=== PATIENT | female | born 1970 | race Hispanic/Latino ===

== ENCOUNTER 2016-09-02 11:29 | Inpatient (IN) | payer MEDICARE ==
[2016-09-02] MEDS ORDERED: NARCAN 2 MG/2 ML ONE (11:32)
[2016-09-02] MEDS ORDERED: VASELINE LIP THERAPY TP PRN (11:54)
[2016-09-02] MEDS ORDERED: NACL 0.9% 1000 ML 1,000 ML IV ONE (11:54)
[2016-09-02] MEDS ORDERED: ARTIFICIAL TEARS OPHTH OINT OU PRN (11:54)
[2016-09-02] MEDS ORDERED: NACL 0.9% 500 ML IV SCH (12:00)
[2016-09-02 12:28] LABS: Basophils % (Auto) 0.2 % (0.0-1.8); Hematocrit 33.6 % (30.3-42.9); Mean Corpuscular HGB Conc 33 % (30-34); Mean Corpuscular Hemoglobin 27 pg (28-32); Mean Corpuscular Volume 83 fl (79-97); Platelet Count 263 K/mm3 (140-440); Red Blood Count 4.05 M/mm3 (3.65-5.03); Red Cell Distribution Width 16.9 % (13.2-15.2); White Blood Count 10.2 K/mm3 (4.5-11.0)
[2016-09-02] MEDS ORDERED: ZEMURON IV ONE (12:36)
[2016-09-02 12:37] LABS: INR 1.11 (0.87-1.13); Partial Thromboplastin Time 25.2 Sec. (24.2-36.6)
[2016-09-02] MEDS: ATIVAN 100 MG in NACL 0.9% 50 ML, VIAFLEX EMPTY CONTAINER 0 ML IV SCH ×2 (12:40→14:50)
[2016-09-02 12:48] LABS: Creatine Kinase MB 1.3 ng/mL (0.0-4.0)
[2016-09-02 12:50] LABS: Alanine Aminotransferase 13 units/L (7-56); Albumin 3.8 g/dL (3.9-5); Alkaline Phosphatase 51 units/L (35-129); Anion Gap 19 mmol/L; BUN/Creatinine Ratio 13.33; Bilirubin,Total 0.4 mg/dL (0.1-1.2); Blood Urea Nitrogen 12 mg/dL (7-17); Calcium 8.1 mg/dL (8.4-10.2); Carbon Dioxide 20 mmol/L (22-30); Chloride 104.6 mmol/L (98-107); Creatine Kinase 66 units/L (30-135); Glucose 122 mg/dL (65-100); Potassium 4.2 mmol/L (3.6-5.0); Sodium 139 mmol/L (137-145)
[2016-09-02 12:54] LABS: Bilirubin,Direct < 0.2 mg/dL (0-0.2)
[2016-09-02 13:04] LABS: ISTAT Base Excess -3; ISTAT PCO2 45.1 (35-45); ISTAT PH 7.316 (7.35-7.45); ISTAT PO2 162 (80-105); ISTAT SO2 99; ISTAT TCO2 24
--- NOTE | 2016-09-02 13:04 | XRay Report ---
Single view chest: Compared to 08/11/15. History: ET tube placement. Findings: Recommended. Trachea is midline. Tip of endotracheal tube at the level of juani. No consolidation, pneumothorax or pleural effusion. Impression: Tip of endotracheal tube at level of juani. Should be withdrawn approximately 2 cm.
--- NOTE | 2016-09-02 13:23 | Admit Criteria Form ---
Admission Criteria Documentation: RESPIRATORY FAILURE GRG Clinical Indications for Admission to Inpatient Care (Place 'X' for any and all applicable criteria): Hospital admission is needed for appropriate care of the patient because of acute respiratory failure or insufficiency as indicated by ANY ONE of the following(1)(2)(3)(4)(5)(6)(7)(8): [X ]I. Mechanical ventilation needed (acute invasive or noninvasive) [ ]II. Severe ventilation deficit as indicated by ANY ONE of the following (9) [ ]a) Respiratory acidosis (pH less than 7.32 and partial pressure of carbon dioxide greater than 40 mm Hg (5.3 kPa)) [ ]b) Partial pressure of carbon dioxide greater than 44 mm Hg (5.9 kPa ) (new) [ ]c) Airflow measurements less than 25% of predicted (eg, peak expiratory flow rate less than 100 L/minute) [ ]d) Forced vital capacity less than 15 mL/kg of ideal body weight, or 50% decrease in vital capacity from baseline [ ]III. Noncardiac pulmonary edema not resolving with rapid emergency treatment (8) [ ]IV. Severe respiratory distress as indicated by ANY ONE of the following: [ ]a) Severe tachypnea (respiratory rate greater than 30, greater than 45 for 6-month-old, greater than 60 for ) [ ]b) Severe hypoxemia (partial pressure of oxygen less than 50 mm Hg ( 6.7 kPa) on greater than 50% oxygen or partial pressure of oxygen to FIO2 ratio less than 200) [ ]c) Mental status deterioration from respiratory disease [ ]V. Airway obstruction or inadequate protection [A](10)(11) The original [employer] content created by [employer] has been revised. The portions of the content which have been revised are identified through the use of italic text or in bold, and [employer] has neither reviewed nor approved the modified material. All other unmodified content is copyright [employer]. Please see references footnoted in the original [employer] edition 2016 Admission Criteria Met: Yes
--- NOTE | 2016-09-02 13:49 | Emergency Department Report ---
ED General Adult HPI - General Chief complaint: Overdose Stated complaint: POSS OVERDOSE Time Seen by Provider: 09/02/16 11:51 Source: EMS Mode of arrival: Stretcher Limitations: Altered Mental Status - History of Present Illness Initial comments: Patient was found obtunded with altered mental status. Paramedics initiated Ambu bag assist and transported the patient for further care and evaluation. She was presumed to have taken a narcotic (oxycodone). However it appears that the medication was actually oxybutynin. Various other medications were found in the patient's home. She did not respond to Narcan. In actuality it is unknown as to whether or not she actually took an overdose. There is no family yet available to provide additional historical information. In any case the patient is obtunded and in respiratory insufficiency/failure on arrival. RSI was indicated and performed. - Related Data Previous Rx's Medication Instructions Recorded Last Taken Type Acetaminophen/Codeine [Tylenol #3] 1 tab PO Q6H PRN #20 tab 01/30/15 Unknown Rx Fluticasone [Flonase] 1 spray NS QDAY #1 bottle 01/30/15 Unknown Rx Penicillin Vk [Veetids TAB] 500 mg PO QID #28 tablet 01/30/15 Unknown Rx guaiFENesin [Robitussin] 10 ml PO Q6HR #1 bottle 01/30/15 Unknown Rx Allergies Allergy/AdvReac Type Severity Reaction Status Date / Time sulfamethoxazole AdvReac Vomiting Verified 09/02/16 11:47 [From Bactrim] trimethoprim [From Bactrim] AdvReac Vomiting Verified 09/02/16 11:47 ED Review of Systems ROS: Stated complaint: POSS OVERDOSE Other details as noted in HPI Comment: Unobtainable due to pts medical conditions ED Past Medical Hx - Past Medical History Hx Psychiatric Treatment: Yes (depression, insomnia) Additional medical history: Fibroidmyalgia - Social History Smoking Status: Never Smoker Substance Use Type: None - Medications Home Medications: Home Medications Medication Instructions Recorded Confirmed Last Taken Type Acetaminophen/Codeine [Tylenol #3] 1 tab PO Q6H PRN #20 tab 01/30/15 Unknown Rx Fluticasone [Flonase] 1 spray NS QDAY #1 bottle 01/30/15 Unknown Rx Penicillin Vk [Veetids TAB] 500 mg PO QID #28 tablet 01/30/15 Unknown Rx guaiFENesin [Robitussin] 10 ml PO Q6HR #1 bottle 01/30/15 Unknown Rx ED Physical Exam - General Limitations: Altered Mental Status General appearance: obtunded - Head Head exam: Present: atraumatic, normocephalic - Eye Eye exam: Present: PERRL, scleral icterus - ENT ENT exam: Present: mucous membranes moist - Neck Neck exam: Present: normal inspection. Absent: tenderness, meningismus - Respiratory Respiratory exam: Present: respiratory distress, decreased breath sounds, other (slow respiratory rate and shallow breathing) - Cardiovascular Cardiovascular Exam: Present: regular rate, normal rhythm. Absent: systolic murmur, diastolic murmur, rubs, gallop - GI/Abdominal GI/Abdominal exam: Present: soft, normal bowel sounds. Absent: distended, tenderness, guarding, rebound, rigid - Extremities Exam Extremities exam: Present: normal inspection - Neurological Exam Neurological exam: Present: other (she moves all extremities to sternal rub) - Skin Skin exam: Present: warm, dry, intact, normal color. Absent: rash ED Course Vital Signs 09/02/16 09/02/16 11:40 12:19 Pulse Rate 85 81 Respiratory 16 Rate Blood Pressure 115/75 122/77 O2 Sat by Pulse 100 100 Oximetry - Reevaluation(s) Reevaluation #1: RSI performed. Direct laryngoscopy with endotracheal intubation without difficulty. The patient remained hemodynamically stable. She is admitted by Dr. Drew to the hospitalist service for further care and evaluation. This for her metabolic profile is normal, aspirin and salicylate levels are negative. CT the head is yet pending. 09/02/16 13:50 - Intubation Time Out Performed: No Sedative: Etomidate Paralytic: Succinylcholine Size: 4 ET Tube Size: 8 Tube Secured Depth (cm): 23 Tube Secured Location: teeth Tube Placement Confirmation: visualized tube passing t, equal breath sounds bilat, no breath sounds over epi, confirmation by capnometr Patient Tolerated Procedure: well Intubation Complications: none ED Medical Decision Making - Lab Data Result diagrams: 09/02/16 12:05 09/02/16 12:05 Critical Care Time: Yes Critical care time in (mins) excluding proc time.: 45 Critical care attestation.: If time is entered above; I have spent that time in minutes in the direct care of this critically ill patient, excluding procedure time. ED Disposition Clinical Impression: Altered mental status Qualifiers: Altered mental status type: stupor Qualified Code(s): R40.1 - Stupor Respiratory failure Qualifiers: Chronicity: acute Respiratory failure complication: unspecified whether with hypoxia or hypercapnia Qualified Code(s): J96.00 - Acute respiratory failure, unspecified whether with hypoxia or hypercapnia Overdose Qualifiers: Encounter type: initial encounter Injury intent: accidental or unintentional Qualified Code(s): T50.901A - Poisoning by unspecified drugs, medicaments and biological substances, accidental (unintentional), initial encounter Disposition: OP ADMITTED IP TO THIS HOSP Is pt being admited?: No Does the pt Need Aspirin: Yes Condition: Stable Referrals: PRIMARY CARE, [Primary Care Provider] - 3-5 Days Time of Disposition: 13:53
[2016-09-02] MEDS ORDERED: ASPIRIN PR ONE ×2 (13:54→17:51)
[2016-09-02 14:49] LABS: Albumin/Globulin Ratio 1.3 %; Total Protein 6.8 g/dL (6.3-8.2)
--- NOTE | 2016-09-02 14:58 | History and Physical Report ---
History of Present Illness Chief complaint: Unresponsive History of present illness: 46 YO Female with Depression, Insomnia, Fibromyalgia presents to ED for evaluation. Pt was found down and unresponsive by family. EMS notified. EMS found various medications in the patient's home. Pt treated with narcan but did not respond. Pt seen and evaluated in ED but is unable to protect her airway. Pt unable to provide history. Past History Past Medical History: other (Depression, fibromyalgia) Past Surgical History: No surgical history, Other (reviewed) Social history: , lives with family. denies: smoking, alcohol abuse, prescription drug abuse Family history: hypertension Medications and Allergies Allergies Allergy/AdvReac Type Severity Reaction Status Date / Time sulfamethoxazole AdvReac Vomiting Verified 09/02/16 11:47 [From Bactrim] trimethoprim [From Bactrim] AdvReac Vomiting Verified 09/02/16 11:47 Home Medications Medication Instructions Recorded Confirmed Last Taken Type Acetaminophen/Codeine [Tylenol #3] 1 tab PO Q6H PRN #20 tab 01/30/15 Unknown Rx Fluticasone [Flonase] 1 spray NS QDAY #1 bottle 01/30/15 Unknown Rx Penicillin Vk [Veetids TAB] 500 mg PO QID #28 tablet 01/30/15 Unknown Rx guaiFENesin [Robitussin] 10 ml PO Q6HR #1 bottle 01/30/15 Unknown Rx Active Meds: Active Medications Hydrophilic Ointment (Vaseline Lip Therapy) 1 applic TP Q2HR PRN PRN Reason: Dry Lips Lorazepam 100 mg/ Sodium Chloride/ Miscellaneous Information 100 mls @ 1 mls/ hr IV TITR TRINH; 1 MG/HR PRN Reason: Protocol Last Admin: 09/02/16 12:40 Dose: 1 mls/hr Sodium Chloride (Nacl 0.9% 1000 Ml) 1,000 mls @ 250 mls/hr IV ONCE ONE Stop: 09/02/16 15:53 Multi-Ingred Cream/Lotion/Oil/Oint (Artificial Tears Ophth Oint) 1 applic OU Q4HR PRN PRN Reason: Dry Eye(s) Sodium Chloride (Nacl 0.9% 500 Ml) 1 ml IV DIRECT TRINH Review of Systems ROS unobtainable: due to mental status Exam - Constitutional Vitals: Temp Pulse Resp BP Pulse Ox 101 H 16 160/88 100 09/02/16 14:45 09/02/16 14:56 09/02/16 14:45 09/02/16 14:56 General appearance: Present: mild distress - Neck Neck: Present: supple - Respiratory Respiratory: bilateral: diminished - Cardiovascular Heart Sounds: Present: S1 & S2. Absent: rub, click - Extremities Extremities: pulses symmetrical, No edema Peripheral Pulses: within normal limits - Abdominal General gastrointestinal: Present: soft, non-tender, non-distended, normal bowel sounds Female genitourinary: Present: normal - Integumentary Integumentary: Present: clear, warm, dry - Musculoskeletal Musculoskeletal: generalized weakness - Psychiatric Psychiatric: no intact judgment & insight, no memory intact - Neurologic Neurologic: no CNII-XII intact, no gait normal Results - Labs CBC & Chem 7: 09/02/16 12:05 09/02/16 12:05 Labs: Abnormal lab results 09/02/16 09/02/16 09/02/16 Range/Units 12:05 12:05 12:05 MCH 27 L (28-32) pg RDW 16.9 H (13.2-15.2) % Lymph % (Auto) 8.8 L (13.4-35.0) % Lymph # 0.9 L (1.2-5.4) K/mm3 Seg Neutrophils % 86.6 H (40.0-70.0) % Seg Neutrophils # 8.9 H (1.8-7.7) K/mm3 POC ABG pH (7.35-7.45) POC ABG pCO2 (35-45) POC ABG pO2 (80-105) Carbon Dioxide 20 L (22-30) mmol/L Glucose 122 H (65-100) mg/dL Calcium 8.1 L (8.4-10.2) mg/dL Albumin 3.8 L (3.9-5) g/dL Salicylates < 0.3 L (2.8-20.0) mg/dL 09/02/16 Range/Units 12:50 MCH (28-32) pg RDW (13.2-15.2) % Lymph % (Auto) (13.4-35.0) % Lymph # (1.2-5.4) K/mm3 Seg Neutrophils % (40.0-70.0) % Seg Neutrophils # (1.8-7.7) K/mm3 POC ABG pH 7.316 L (7.35-7.45) POC ABG pCO2 45.1 H (35-45) POC ABG pO2 162 H (80-105) Carbon Dioxide (22-30) mmol/L Glucose (65-100) mg/dL Calcium (8.4-10.2) mg/dL Albumin (3.9-5) g/dL Salicylates (2.8-20.0) mg/dL Assessment and Plan - Patient Problems (1) Acute hypoxemic respiratory failure Current Visit: Yes Status: Acute Plan to address problem: Pulmonary consulted: Admitted to ICU, wean vent as tolerated, SBT in am, pulmonary toilet (2) Encephalopathy acute Current Visit: Yes Status: Acute Plan to address problem: suspected secondary to overdose, IVF, supportive care, am bmp (3) Obesity Current Visit: Yes Status: Acute Qualifiers: Obesity type: O Obesity severity: O Plan to address problem: supportive care, pt counseling when awake,alert (4) Depression Current Visit: Yes Status: Chronic Qualifiers: Depression Type: D Major depression recurrence: M Active/Remission status : A Major depression episode severity: M Psychotic features: P Trimester: T Plan to address problem: continue current therapy, psycho consult when awake (5) Overdose Current Visit: Yes Status: Suspected Qualifiers: Encounter type: initial encounter Injury intent: accidental or unintentional Qualified Code(s): T50.901A - Poisoning by unspecified drugs, medicaments and biological substances, accidental (unintentional), initial encounter Plan to address problem: continue current therapy, supplemental oxygen, nebs, pulmonary toilet, (6) DVT prophylaxis Current Visit: Yes Status: Acute
[2016-09-02] MEDS ORDERED: DULCOLAX PR PRN (15:03)
[2016-09-02] MEDS ORDERED: MILK OF MAGNESIA PO PRN (15:03)
[2016-09-02] MEDS ORDERED: DUONEB 0.5 MG-3 MG/3 ML SOLN IH PRN (15:03)
[2016-09-02] MEDS ORDERED: ALUM-MAG HYDROX-SIMETH 200-200-20MG/5ML PO PRN (15:03)
[2016-09-02 15:07] LABS: Urine Drugs of Abuse Note Disclamer
[2016-09-02 15:59] LABS: Bilirubin,Urine NEG (Negative); Blood,Urine NEG (Negative); Ketones,Urine TR mg/dL (Negative); Leukocyte Esterase,Urine NEG (Negative); Mucus,Urine FEW /HPF; Nitrite,Urine NEG (Negative); RBC,Urine < 1.0 /HPF (0.0-6.0); Urobilinogen,Urine < 2.0 mg/dL (<2.0); WBC,Urine < 1.0 /HPF (0.0-6.0)
--- NOTE | 2016-09-02 16:46 | Cat Scan Report ---
CRANIAL CT SCAN: Overdose and mentation changes. Serial contiguous axial images were obtained through the cranium. Intravenous contrast material was not administered. The ventricles are normal in size and appearance. There is no mass effect or midline shift. No areas of abnormally increased or decreased attenuation are seen. No mass lesion is seen. The mastoid air cells and visualized portions of the sinuses are normal. IMPRESSION: Cranial CT scan within normal limits.
[2016-09-02] MEDS ORDERED: LOVENOX SUB-Q ONE (17:51)
[2016-09-02] MEDS: LOVENOX SUB-Q SCH (18:19)
[2016-09-03] MEDS ORDERED: fentaNYL DRIP Premix 2,000 MCG/100 ML BAG IV SCH (03:00)
[2016-09-03] MEDS: ROBITUSSIN PO SCH ×2 (03:25→12:00)
[2016-09-03 04:48] LABS: ISTAT Base Excess -5; ISTAT HCO3 21.1; ISTAT PH 7.341 (7.35-7.45); ISTAT PO2 125 (80-105); ISTAT SO2 99; ISTAT TCO2 22
[2016-09-03] MEDS: ATIVAN 100 MG in NACL 0.9% 50 ML, VIAFLEX EMPTY CONTAINER 0 ML IV SCH (05:05)
--- NOTE | 2016-09-03 09:35 | XRay Report ---
Single view chest: Compared to 09/02/16. History: Followup of respiratory failure. Findings: Borderline cardiomegaly. Tip of endotracheal tube at level of juani. No consolidation, pneumothorax or pleural effusion. Impression: Tip of endotracheal tube at the level of juani. Should be withdrawn approximately 2 cm. No acute lung changes.
[2016-09-03] MEDS: FLONASE NS SCH (10:00)
[2016-09-03] MEDS: LOVENOX SUB-Q SCH (10:25)
[2016-09-03] MEDS ORDERED: SODIUM BICARBONATE FEEDTUBE PRN (10:27)
[2016-09-03] MEDS ORDERED: SIMPLE SYRUP FEEDTUBE PRN ×2 (10:27)
[2016-09-03] MEDS ORDERED: PANCREAZE DR 10,500 UNIT FEEDTUBE PRN (10:27)
--- NOTE | 2016-09-03 12:15 | Consultation ---
History of Present Illness Consult date: 09/03/16 Requesting physician: FAUSTO FUENTES Reason for consult: other (Encephalopathy, inability to protect airway) History of present illness: 46 female, found down at home. Concern for overdose and was intubated in ED for airway protection Past History Past Medical History: other (Depression, fibromyalgia) Past Surgical History: No surgical history, Other (reviewed) Social history: , lives with family. denies: smoking, alcohol abuse, prescription drug abuse Family history: hypertension Medications and Allergies Allergies Allergy/AdvReac Type Severity Reaction Status Date / Time sulfamethoxazole AdvReac Vomiting Verified 09/02/16 11:47 [From Bactrim] trimethoprim [From Bactrim] AdvReac Vomiting Verified 09/02/16 11:47 Home Medications Medication Instructions Recorded Confirmed Last Taken Type Amitriptyline [Elavil] 50 mg PO QHS 09/02/16 09/02/16 Unknown History Bupropion HCl [Wellbutrin XL] 300 mg PO DAILY 09/02/16 09/02/16 Unknown History Buspirone HCl [busPIRone] 15 mg PO BID 09/02/16 09/02/16 Unknown History Gabapentin [Neurontin] 600 mg PO TID 09/02/16 09/02/16 Unknown History Lisinopril [Zestril TAB] 10 mg PO DAILY 09/02/16 09/02/16 Unknown History Oxybutynin Chloride [Oxybutynin 10 mg PO DAILY 09/02/16 09/02/16 Unknown History Chloride ER] Sertraline HCl [Zoloft] 50 mg PO DAILY 09/02/16 09/02/16 Unknown History Simvastatin [Zocor TAB] 20 mg PO QHS 09/02/16 09/02/16 Unknown History Zolpidem [Ambien] 10 mg PO QHS 09/02/16 09/02/16 Unknown History Active Meds: Active Medications Acetaminophen/Codeine Phosphate (Tylenol #3) 1 tab PO Q6H PRN PRN Reason: Pain Al Hydrox/Mg Hydrox/Simethicone (Alum-Mag Hydrox-Simeth [id number]/5ml) 30 ml PO Q4H PRN PRN Reason: Indigestion Albuterol/Ipratropium (Duoneb 0.5 Mg-3 Mg/3 Ml Soln) 1 ampul IH Q6HRT PRN PRN Reason: Wheezing Lipase/Protease/Amylase (Pancreaze Dr 10,500 Unit) 1 each FEEDTUBE PRN PRN PRN Reason: For Clogged Feeding Tube Bisacodyl (Dulcolax) 10 mg CO QDAY PRN PRN Reason: constipation unrelieved by MOM Enoxaparin Sodium (Lovenox) 40 mg SUB-Q QDAY@1000 TRINH Last Admin: 09/03/16 10:25 Dose: 40 mg Fluticasone Propionate (Flonase) 50 mcg NS QDAY TRINH Guaifenesin (Robitussin) 100 mg PO Q6HR TRINH Last Admin: 09/03/16 03:25 Dose: Not Given Hydrophilic Ointment (Vaseline Lip Therapy) 1 applic TP Q2HR PRN PRN Reason: Dry Lips Lorazepam 100 mg/ Sodium Chloride/ Miscellaneous Information 100 mls @ 1 mls/ hr IV TITR TRINH; 1 MG/HR PRN Reason: Protocol Last Admin: 09/03/16 05:05 Dose: 5 mg/hr, 5 mls/hr Fentanyl Citrate (Fentanyl Drip Premix) 2,000 mcg in 100 mls @ 4.5 mls/hr IV TITR TRINH; 1 MCG/KG/HR PRN Reason: Protocol Last Admin: 09/03/16 02:32 Dose: 1 mcg/kg/hr, 4.5 mls/hr Magnesium Hydroxide (Milk Of Magnesia) 30 ml PO Q4H PRN PRN Reason: Constipation Multi-Ingred Cream/Lotion/Oil/Oint (Artificial Tears Ophth Oint) 1 applic OU Q4HR PRN PRN Reason: Dry Eye(s) Simple Syrup (Simple Syrup) 15 ml FEEDTUBE PRN PRN PRN Reason: Hypoglycemia Simple Syrup (Simple Syrup) 30 ml FEEDTUBE PRN PRN PRN Reason: Hypoglycemia Sodium Bicarbonate (Sodium Bicarbonate) 325 mg FEEDTUBE PRN PRN PRN Reason: For Clogged Feeding Tube Sodium Chloride (Nacl 0.9% 500 Ml) 1 ml IV DIRECT TRINH Review of Systems ROS unobtainable: due to endotracheal tube Physical Examination Vital signs: Vital Signs Pulse BP Pulse Ox 85 115/75 100 09/02/16 11:40 09/02/16 11:40 09/02/16 11:40 General appearance: no acute distress, lethargic Eyes: non-icteric ENT: oropharynx moist, other (large neck) Neck: supple, other (large neck) Effort: normal Ascultation: Bilateral: clear Percussion: Bilateral: not dull Cardiovascular: regular rate and rhythm Gastrointestinal: normoactive bowel sounds Extremities: no cyanosis Musculoskeletal: no deformities normal mental status Results - Laboratory Findings CBC and BMP: 09/02/16 12:05 09/02/16 12:05 ABG POC ABG pH 7.341 (7.35-7.45) L 09/03/16 04:25 POC ABG pCO2 39.0 (35-45) 09/03/16 04:25 POC ABG pO2 125 (80-105) H 09/03/16 04:25 POC ABG HCO3 21.1 09/03/16 04:25 POC ABG Total CO2 22 09/03/16 04:25 POC ABG O2 Sat 99 09/03/16 04:25 PT/INR, D-dimer PT 14.2 Sec. (12.2-14.9) 09/02/16 12:05 INR 1.11 (0.87-1.13) 09/02/16 12:05 Abnormal lab findings: Abnormal Labs 09/03/16 04:25 POC ABG pH 7.341 L POC ABG pO2 125 H - Diagnostic Findings Chest x-ray: image reviewed (clear, no acute events) Assessment and Plan 46 y/o female with acute respiratory failure secondary to drug overdose. 1. Extubate 2. Agree with Psych eval 3. Likely stable for transfer out later this afternoon once extubated. CCT 31 minutes.
[2016-09-03] MEDS ORDERED: NARCAN 2 MG/2 ML ONE (14:00)
--- NOTE | 2016-09-03 15:54 | Progress Note ---
Assessment and Plan Assessment and plan: 46 yo female with fibromyalgia,depression, anxiety, insomnia, found down at home and intubated in ER for airway protection 1. Acute respiratory failure Intubated due to inability to protect her airway Possible extubation today if mental status improves 2. Acute encephalopathy Infection ruled out, ammonia within normal limits; CT head normal Likely secondary to psychotropic medications overdose Supportive care 3. Overdose Overdose on multiple psychotropic/sedative medications; unclear intend Consult Psychiatry 4. Psychiatric disorders On multiple medications with likely overdose Consult psychiatry 5. Hypertension Resume antihypertensives when able to take by mouth Monitor BP, use IV meds for control if needed 6. Hyperlipidemia Resume statin when able to take by mouth 7. Obesity Mental status back to normal, will need counseling regarding importance of losing weight and lifestyle changes 8. DVT prophylaxis Lovenox cc time 35 min History Interval history: sedation d/c this morning and started to wake up; possible extubation later Hospitalist Physical - Constitutional Vitals: Temp Pulse Resp BP Pulse Ox 99.3 F 105 H 24 127/74 98 09/03/16 08:00 09/03/16 12:10 09/03/16 12:10 09/03/16 12:10 09/03/16 12:10 General appearance: Present: no acute distress, obese - EENT Eyes: Present: PERRL - Neck Neck: Present: supple. Absent: enlarged thyroid, masses or JVD - Respiratory Respiratory effort: normal, other (intubated) Respiratory: bilateral: CTA, negative: rales, rhonchi, wheezing - Cardiovascular Rhythm: regular Heart Sounds: Present: S1 & S2. Absent: systolic murmur - Extremities Extremities: no ischemia, No edema - Abdominal General gastrointestinal: soft, non-tender, non-distended, normal bowel sounds - Psychiatric Psychiatric: other (lethargic) Results - Labs CBC & Chem 7: 09/02/16 12:05 09/02/16 12:05 Labs: Laboratory Last Values WBC 10.2 K/mm3 (4.5-11.0) 09/02/16 12:05 RBC 4.05 M/mm3 (3.65-5.03) 09/02/16 12:05 Hgb 11.0 gm/dl (10.1-14.3) 09/02/16 12:05 Hct 33.6 % (30.3-42.9) 09/02/16 12:05 MCV 83 fl (79-97) 09/02/16 12:05 MCH 27 pg (28-32) L 09/02/16 12:05 MCHC 33 % (30-34) 09/02/16 12:05 RDW 16.9 % (13.2-15.2) H 09/02/16 12:05 Plt Count 263 K/mm3 (140-440) 09/02/16 12:05 Lymph % (Auto) 8.8 % (13.4-35.0) L 09/02/16 12:05 [place] % (Auto) 4.4 % (0.0-7.3) 09/02/16 12:05 Eos % (Auto) 0.0 % (0.0-4.3) 09/02/16 12:05 Baso % (Auto) 0.2 % (0.0-1.8) 09/02/16 12:05 Lymph # 0.9 K/mm3 (1.2-5.4) L 09/02/16 12:05 [place] # 0.4 K/mm3 (0.0-0.8) 09/02/16 12:05 Eos # 0.0 K/mm3 (0.0-0.4) 09/02/16 12:05 Baso # 0.0 K/mm3 (0.0-0.1) 09/02/16 12:05 Seg Neutrophils % 86.6 % (40.0-70.0) H 09/02/16 12:05 Seg Neutrophils # 8.9 K/mm3 (1.8-7.7) H 09/02/16 12:05 PT 14.2 Sec. (12.2-14.9) 09/02/16 12:05 INR 1.11 (0.87-1.13) 09/02/16 12:05 APTT 25.2 Sec. (24.2-36.6) 09/02/16 12:05 POC ABG pH 7.341 (7.35-7.45) L 09/03/16 04:25 POC ABG pCO2 39.0 (35-45) 09/03/16 04:25 POC ABG pO2 125 (80-105) H 09/03/16 04:25 POC ABG HCO3 21.1 09/03/16 04:25 POC ABG Total CO2 22 09/03/16 04:25 POC ABG O2 Sat 99 09/03/16 04:25 POC ABG Base Excess -5 09/03/16 04:25 FiO2 40 % 09/03/16 04:25 Sodium 139 mmol/L (137-145) 09/02/16 12:05 Potassium 4.2 mmol/L (3.6-5.0) 09/02/16 12:05 Chloride 104.6 mmol/L (98-107) 09/02/16 12:05 Carbon Dioxide 20 mmol/L (22-30) L 09/02/16 12:05 Anion Gap 19 mmol/L 09/02/16 12:05 BUN 12 mg/dL (7-17) 09/02/16 12:05 Creatinine 0.9 mg/dL (0.7-1.2) 09/02/16 12:05 Estimated GFR > 60 ml/min 09/02/16 12:05 BUN/Creatinine Ratio 13.33 % 09/02/16 12:05 Glucose 122 mg/dL (65-100) H 09/02/16 12:05 Lactic Acid 1.6 mmol/L (0.7-2.0) 09/02/16 12:05 Calcium 8.1 mg/dL (8.4-10.2) L 09/02/16 12:05 Total Bilirubin 0.4 mg/dL (0.1-1.2) 09/02/16 12:05 Direct Bilirubin < 0.2 mg/dL (0-0.2) 09/02/16 12:05 AST 15 units/L (5-40) 09/02/16 12:05 ALT 13 units/L (7-56) 09/02/16 12:05 Alkaline Phosphatase 51 units/L (35-129) 09/02/16 12:05 Ammonia 37.0 umol/L (25-60) 09/02/16 12:05 Total Creatine Kinase 66 units/L (30-135) 09/02/16 12:05 CK-MB (CK-2) 1.3 ng/mL (0.0-4.0) 09/02/16 12:05 CK-MB (CK-2) Rel Index 1.9 (0-4) 09/02/16 12:05 Troponin T < 0.010 ng/mL (0.00-0.029) 09/02/16 12:05 NT-Pro-B Natriuret Pep 42.87 pg/mL (0-450) 09/02/16 12:05 Total Protein 6.8 g/dL (6.3-8.2) 09/02/16 12:05 Albumin 3.8 g/dL (3.9-5) L 09/02/16 12:05 Albumin/Globulin Ratio 1.3 % 09/02/16 12:05 Urine Color Yellow (Yellow) 09/02/16 14:54 Urine Turbidity Clear (Clear) 09/02/16 14:54 Urine pH 6.0 (5.0-7.0) 09/02/16 14:54 Ur Specific [place] 1.019 (1.003-1.030) 09/02/16 14:54 Urine Protein 30 mg/dl mg/dL (Negative) 09/02/16 14:54 Urine Glucose (UA) 50 mg/dL (Negative) 09/02/16 14:54 Urine Ketones Tr mg/dL (Negative) 09/02/16 14:54 Urine Blood Neg (Negative) 09/02/16 14:54 Urine Nitrite Neg (Negative) 09/02/16 14:54 Urine Bilirubin Neg (Negative) 09/02/16 14:54 Urine Urobilinogen < 2.0 mg/dL (<2.0) 09/02/16 14:54 Ur Leukocyte Esterase Neg (Negative) 09/02/16 14:54 Urine WBC (Auto) < 1.0 /HPF (0.0-6.0) 09/02/16 14:54 Urine RBC (Auto) < 1.0 /HPF (0.0-6.0) 09/02/16 14:54 U Epithel Cells (Auto) 1.0 /HPF (0-13.0) 09/02/16 14:54 Urine Mucus Few /HPF 09/02/16 14:54 Salicylates < 0.3 mg/dL (2.8-20.0) L 09/02/16 12:05 Urine Opiates Screen Presumptive negative 09/02/16 14:54 Urine Methadone Screen Presumptive negative 09/02/16 14:54 Acetaminophen < 15.0 ug/mL (10.0-30.0) 09/02/16 12:05 Ur Barbiturates Screen Presumptive negative 09/02/16 14:54 Ur Phencyclidine Scrn Presumptive negative 09/02/16 14:54 Ur Amphetamines Screen Presumptive negative 09/02/16 14:54 U Benzodiazepines Scrn Presumptive negative 09/02/16 14:54 Urine Cocaine Screen Presumptive negative 09/02/16 14:54 U Marijuana (THC) Screen Presumptive negative 09/02/16 14:54 Drugs of Abuse Note Disclamer 09/02/16 14:54 Plasma/Serum Alcohol < 0.01 gm% (0-0.07) 09/02/16 12:05 - Imaging and Cardiology Chest x-ray: image reviewed CT Scan - head: report reviewed
[2016-09-03] MEDS ORDERED: APRESOLINE IV ONE (16:16)
[2016-09-03] MEDS ORDERED: TYLENOL PO PRN (17:51)
[2016-09-03] MEDS ORDERED: TYLENOL PR ONE (18:16)
[2016-09-03] MEDS ORDERED: ATIVAN IV PRN ×2 (20:33)
[2016-09-04] MEDS: ROBITUSSIN PO SCH ×4 (00:27→11:16)
[2016-09-04] MEDS: ATIVAN IV PRN ×2 (03:47→06:52)
[2016-09-04 09:29] LABS: Creatine Kinase 67 units/L (30-135)
[2016-09-04] MEDS: ZESTRIL PO SCH (09:29)
[2016-09-04] MEDS: LOVENOX SUB-Q SCH (09:29)
[2016-09-04] MEDS: FLONASE NS SCH (09:35)
[2016-09-04 09:50] LABS: Creatine Kinase MB < 1.0 ng/mL (0.0-4.0)
--- NOTE | 2016-09-04 15:17 | Progress Note ---
Assessment and Plan 46 y/o female with acute respiratory failure secondary to drug overdose. 1. Stable for transfer to the floor. 2. Agree with Psych eval Subjective Date of service: 09/04/16 Interval history: No acute events. Successful extubation on yesterday. Mental status is improved. Still somewhat sluggish, otherwise better. Objective Vital Signs - 12hr 09/04/16 09/04/16 09/04/16 03:57 04:00 04:31 Temperature 100.2 F H Pulse Rate 111 H 104 H Respiratory 30 H 27 H Rate Blood Pressure 162/97 162/97 O2 Sat by Pulse 96 97 Oximetry 09/04/16 09/04/16 09/04/16 05:01 05:31 06:00 Temperature Pulse Rate 117 H 116 H Respiratory 40 H 38 H Rate Blood Pressure 129/106 177/101 157/90 O2 Sat by Pulse 92 93 94 Oximetry 09/04/16 09/04/16 09/04/16 06:31 07:01 07:31 Temperature Pulse Rate 113 H 117 H 123 H Respiratory 30 H 15 15 Rate Blood Pressure 157/90 157/88 157/88 O2 Sat by Pulse 91 93 100 Oximetry 09/04/16 09/04/16 09/04/16 08:00 08:31 09:01 Temperature 99.9 F H Pulse Rate 117 H 107 H 112 H Respiratory 29 H 31 H 30 H Rate Blood Pressure 154/91 154/91 147/81 O2 Sat by Pulse 92 94 96 Oximetry 09/04/16 09/04/16 09/04/16 09:29 09:31 10:00 Temperature Pulse Rate 105 H 110 H 108 H Respiratory 13 28 H Rate Blood Pressure 147/81 147/81 157/80 O2 Sat by Pulse 100 99 98 Oximetry 09/04/16 09/04/16 09/04/16 10:31 11:00 11:31 Temperature Pulse Rate 106 H 102 H 102 H Respiratory 28 H 29 H 25 H Rate Blood Pressure 157/80 152/86 152/86 O2 Sat by Pulse 99 99 99 Oximetry 09/04/16 09/04/16 09/04/16 12:00 12:01 12:31 Temperature 99.4 F Pulse Rate 106 H 107 H Respiratory 22 26 H Rate Blood Pressure 142/70 142/70 O2 Sat by Pulse 97 94 Oximetry 09/04/16 09/04/16 09/04/16 13:00 13:31 14:00 Temperature Pulse Rate 105 H 113 H 104 H Respiratory 25 H 19 23 Rate Blood Pressure 132/74 132/74 130/79 O2 Sat by Pulse 98 97 95 Oximetry Constitutional: no acute distress, lethargic Eyes: non-icteric ENT: oropharynx moist, other (large neck) Neck: supple, other (large neck) Effort: normal Ascultation: Bilateral: clear Percussion: Bilateral: not dull Cardiovascular: regular rate and rhythm Gastrointestinal: normoactive bowel sounds Extremities: no cyanosis Neurologic: normal mental status CBC and BMP: 09/02/16 12:05 09/02/16 12:05 ABG, PT/INR, D-dimer: ABG POC ABG pH 7.341 (7.35-7.45) L 09/03/16 04:25 POC ABG pCO2 39.0 (35-45) 09/03/16 04:25 POC ABG pO2 125 (80-105) H 09/03/16 04:25 POC ABG HCO3 21.1 09/03/16 04:25 POC ABG Total CO2 22 09/03/16 04:25 POC ABG O2 Sat 99 09/03/16 04:25 PT/INR, D-dimer PT 14.2 Sec. (12.2-14.9) 09/02/16 12:05 INR 1.11 (0.87-1.13) 09/02/16 12:05 Abnormal lab findings: Abnormal Labs 09/03/16 04:25 POC ABG pH 7.341 L POC ABG pO2 125 H
--- NOTE | 2016-09-04 15:34 | Progress Note ---
Assessment and Plan Assessment and plan: 46 yo female with fibromyalgia, depression, anxiety, insomnia, found down at home and intubated in ER for airway protection 1. Acute respiratory failure Intubated due to inability to protect her airway Successfully extubated next day 09/03 2. Acute encephalopathy Infection ruled out, ammonia within normal limits; CT head normal Likely secondary to psychotropic medications overdose Supportive care Resolved 3. Overdose Overdose on multiple psychotropic/sedative medications; unclear intend Awainting Psychiatry evaluation 4. Psychiatric disorders On multiple medications with likely overdose Consult psychiatry Resume Zoloft 5. Hypertension Lisinopril restarted Monitor BP 6. Hyperlipidemia Statin resumed 7. Obesity Will need counseling regarding importance of losing weight and lifestyle changes 8. DVT prophylaxis Lovenox History Interval history: extubated yesterday; c/o insomnia; depressed, crying; present at bedsite Hospitalist Physical - Constitutional Vitals: Temp Pulse Resp BP Pulse Ox 99.4 F 104 H 23 130/79 95 09/04/16 12:00 09/04/16 14:00 09/04/16 14:00 09/04/16 14:00 09/04/16 14:00 General appearance: Present: no acute distress, obese - EENT Eyes: Present: PERRL, EOM intact. Absent: scleral icterus, conjunctival injection - Neck Neck: Present: supple, normal ROM. Absent: masses or JVD - Respiratory Respiratory effort: normal Respiratory: bilateral: CTA, negative: rales, rhonchi, wheezing - Cardiovascular Rhythm: regular Heart Sounds: Present: S1 & S2. Absent: systolic murmur - Extremities Extremities: no ischemia - Abdominal General gastrointestinal: soft, non-tender, non-distended, normal bowel sounds - Psychiatric Psychiatric: depressed - Neurologic Neurologic: CNII-XII intact, no focal deficits Results - Labs CBC & Chem 7: 09/02/16 12:05 09/02/16 12:05 Labs: Laboratory Last Values WBC 10.2 K/mm3 (4.5-11.0) 09/02/16 12:05 RBC 4.05 M/mm3 (3.65-5.03) 09/02/16 12:05 Hgb 11.0 gm/dl (10.1-14.3) 09/02/16 12:05 Hct 33.6 % (30.3-42.9) 09/02/16 12:05 MCV 83 fl (79-97) 09/02/16 12:05 MCH 27 pg (28-32) L 09/02/16 12:05 MCHC 33 % (30-34) 09/02/16 12:05 RDW 16.9 % (13.2-15.2) H 09/02/16 12:05 Plt Count 263 K/mm3 (140-440) 09/02/16 12:05 Lymph % (Auto) 8.8 % (13.4-35.0) L 09/02/16 12:05 [place] % (Auto) 4.4 % (0.0-7.3) 09/02/16 12:05 Eos % (Auto) 0.0 % (0.0-4.3) 09/02/16 12:05 Baso % (Auto) 0.2 % (0.0-1.8) 09/02/16 12:05 Lymph # 0.9 K/mm3 (1.2-5.4) L 09/02/16 12:05 [place] # 0.4 K/mm3 (0.0-0.8) 09/02/16 12:05 Eos # 0.0 K/mm3 (0.0-0.4) 09/02/16 12:05 Baso # 0.0 K/mm3 (0.0-0.1) 09/02/16 12:05 Seg Neutrophils % 86.6 % (40.0-70.0) H 09/02/16 12:05 Seg Neutrophils # 8.9 K/mm3 (1.8-7.7) H 09/02/16 12:05 PT 14.2 Sec. (12.2-14.9) 09/02/16 12:05 INR 1.11 (0.87-1.13) 09/02/16 12:05 APTT 25.2 Sec. (24.2-36.6) 09/02/16 12:05 POC ABG pH 7.341 (7.35-7.45) L 09/03/16 04:25 POC ABG pCO2 39.0 (35-45) 09/03/16 04:25 POC ABG pO2 125 (80-105) H 09/03/16 04:25 POC ABG HCO3 21.1 09/03/16 04:25 POC ABG Total CO2 22 09/03/16 04:25 POC ABG O2 Sat 99 09/03/16 04:25 POC ABG Base Excess -5 09/03/16 04:25 FiO2 40 % 09/03/16 04:25 Sodium 139 mmol/L (137-145) 09/02/16 12:05 Potassium 4.2 mmol/L (3.6-5.0) 09/02/16 12:05 Chloride 104.6 mmol/L (98-107) 09/02/16 12:05 Carbon Dioxide 20 mmol/L (22-30) L 09/02/16 12:05 Anion Gap 19 mmol/L 09/02/16 12:05 BUN 12 mg/dL (7-17) 09/02/16 12:05 Creatinine 0.9 mg/dL (0.7-1.2) 09/02/16 12:05 Estimated GFR > 60 ml/min 09/02/16 12:05 BUN/Creatinine Ratio 13.33 % 09/02/16 12:05 Glucose 122 mg/dL (65-100) H 09/02/16 12:05 Lactic Acid 1.6 mmol/L (0.7-2.0) 09/02/16 12:05 Calcium 8.1 mg/dL (8.4-10.2) L 09/02/16 12:05 Total Bilirubin 0.4 mg/dL (0.1-1.2) 09/02/16 12:05 Direct Bilirubin < 0.2 mg/dL (0-0.2) 09/02/16 12:05 AST 15 units/L (5-40) 09/02/16 12:05 ALT 13 units/L (7-56) 09/02/16 12:05 Alkaline Phosphatase 51 units/L (35-129) 09/02/16 12:05 Ammonia 37.0 umol/L (25-60) 09/02/16 12:05 Total Creatine Kinase 67 units/L (30-135) 09/04/16 08:53 CK-MB (CK-2) < 1.0 ng/mL (0.0-4.0) 09/04/16 08:53 CK-MB (CK-2) Rel Index 1.4 (0-4) 09/04/16 08:53 Troponin T < 0.010 ng/mL (0.00-0.029) 09/04/16 08:53 NT-Pro-B Natriuret Pep 42.87 pg/mL (0-450) 09/02/16 12:05 Total Protein 6.8 g/dL (6.3-8.2) 09/02/16 12:05 Albumin 3.8 g/dL (3.9-5) L 09/02/16 12:05 Albumin/Globulin Ratio 1.3 % 09/02/16 12:05 Urine Color Yellow (Yellow) 09/02/16 14:54 Urine Turbidity Clear (Clear) 09/02/16 14:54 Urine pH 6.0 (5.0-7.0) 09/02/16 14:54 Ur Specific [place] 1.019 (1.003-1.030) 09/02/16 14:54 Urine Protein 30 mg/dl mg/dL (Negative) 09/02/16 14:54 Urine Glucose (UA) 50 mg/dL (Negative) 09/02/16 14:54 Urine Ketones Tr mg/dL (Negative) 09/02/16 14:54 Urine Blood Neg (Negative) 09/02/16 14:54 Urine Nitrite Neg (Negative) 09/02/16 14:54 Urine Bilirubin Neg (Negative) 09/02/16 14:54 Urine Urobilinogen < 2.0 mg/dL (<2.0) 09/02/16 14:54 Ur Leukocyte Esterase Neg (Negative) 09/02/16 14:54 Urine WBC (Auto) < 1.0 /HPF (0.0-6.0) 09/02/16 14:54 Urine RBC (Auto) < 1.0 /HPF (0.0-6.0) 09/02/16 14:54 U Epithel Cells (Auto) 1.0 /HPF (0-13.0) 09/02/16 14:54 Urine Mucus Few /HPF 09/02/16 14:54 Salicylates < 0.3 mg/dL (2.8-20.0) L 09/02/16 12:05 Urine Opiates Screen Presumptive negative 09/02/16 14:54 Urine Methadone Screen Presumptive negative 09/02/16 14:54 Acetaminophen < 15.0 ug/mL (10.0-30.0) 09/02/16 12:05 Ur Barbiturates Screen Presumptive negative 09/02/16 14:54 Ur Phencyclidine Scrn Presumptive negative 09/02/16 14:54 Ur Amphetamines Screen Presumptive negative 09/02/16 14:54 U Benzodiazepines Scrn Presumptive negative 09/02/16 14:54 Urine Cocaine Screen Presumptive negative 09/02/16 14:54 U Marijuana (THC) Screen Presumptive negative 09/02/16 14:54 Drugs of Abuse Note Disclamer 09/02/16 14:54 Plasma/Serum Alcohol < 0.01 gm% (0-0.07) 09/02/16 12:05
[2016-09-04] MEDS: TYLENOL #3 PO PRN (21:24)
[2016-09-04] MEDS: ZOCOR PO SCH (21:24)
[2016-09-04] MEDS ORDERED: ATIVAN IV ONE (22:11)
[2016-09-04] MEDS: NACL 0.9% 1000 ML 1,000 ML IV SCH (23:59)
[2016-09-05] MEDS: ROBITUSSIN PO SCH ×8 (00:32→23:54)
[2016-09-05] MEDS: NACL 0.9% 1000 ML 1,000 ML IV SCH (07:42)
[2016-09-05] MEDS: ZOLOFT PO SCH (09:53)
[2016-09-05] MEDS: ZESTRIL PO SCH (09:54)
[2016-09-05] MEDS: LOVENOX SUB-Q SCH (09:55)
--- NOTE | 2016-09-05 11:03 | Progress Note ---
Assessment and Plan Assessment and plan: 46 yo woman with history of fibromyalgia, depression, anxiety, insomnia, found down at home and intubated in ER for airway protection 1. Acute respiratory failure Intubated due to inability to protect her airway Successfully extubated next day 09/03 2. Acute encephalopathy Infection ruled out, ammonia within normal limits; CT head normal Likely secondary to psychotropic medications overdose Supportive care Resolved 3. Overdose Overdose on multiple psychotropic/sedative medications; unclear intend Awaiting Psychiatry evaluation 4. Psychiatric disorders On multiple medications with likely overdose Consult psychiatry Resume Zoloft 5. Hypertension Lisinopril restarted Monitor BP 6. Hyperlipidemia Statin resumed 7. Obesity Will need counseling regarding importance of losing weight and lifestyle changes 8. DVT prophylaxis Lovenox Disposition: Psych has yet to see History Interval history: Patient seen and examined. Follow up on ams. She is in restraints. Overnight uneventful. No cp, sob, n/v or severe headaches. Imaging, old records, testing, labs, nursing notes reviewed. Plan discussed with patient. Hospitalist Physical - Physical exam Narrative exam: GEN: WDWN, NAD, AWAKE, ALERT, ORIENTATED 2 missed location CVS: RRR, NORMAL S1S2 LUNGS/CHEST: CTA B, NORMAL CHEST EXPANSION B, GOOD AIR ENTRY B ABD: SOFT NTND, GBS, NO REBOUND OR GUARDING EXT/SKIN: NO SIGNIFICANT EDEMA OR RASH MSK: FROM X 4 EXTREMITIES NEURO: CN 2-12 GROSSLY INTACT, NO new FOCAL DEFICITS PSY: CALM - Constitutional Vitals: Temp Pulse Resp BP Pulse Ox 98.6 F 95 H 18 139/82 94 09/05/16 08:00 09/05/16 08:00 09/05/16 08:00 09/05/16 09:54 09/05/16 10:06 General appearance: Present: no acute distress, obese Results - Labs CBC & Chem 7: 09/02/16 12:05 09/02/16 12:05 Labs: Laboratory Last Values WBC 10.2 K/mm3 (4.5-11.0) 09/02/16 12:05 RBC 4.05 M/mm3 (3.65-5.03) 09/02/16 12:05 Hgb 11.0 gm/dl (10.1-14.3) 09/02/16 12:05 Hct 33.6 % (30.3-42.9) 09/02/16 12:05 MCV 83 fl (79-97) 09/02/16 12:05 MCH 27 pg (28-32) L 09/02/16 12:05 MCHC 33 % (30-34) 09/02/16 12:05 RDW 16.9 % (13.2-15.2) H 09/02/16 12:05 Plt Count 263 K/mm3 (140-440) 09/02/16 12:05 Lymph % (Auto) 8.8 % (13.4-35.0) L 09/02/16 12:05 [place] % (Auto) 4.4 % (0.0-7.3) 09/02/16 12:05 Eos % (Auto) 0.0 % (0.0-4.3) 09/02/16 12:05 Baso % (Auto) 0.2 % (0.0-1.8) 09/02/16 12:05 Lymph # 0.9 K/mm3 (1.2-5.4) L 09/02/16 12:05 [place] # 0.4 K/mm3 (0.0-0.8) 09/02/16 12:05 Eos # 0.0 K/mm3 (0.0-0.4) 09/02/16 12:05 Baso # 0.0 K/mm3 (0.0-0.1) 09/02/16 12:05 Seg Neutrophils % 86.6 % (40.0-70.0) H 09/02/16 12:05 Seg Neutrophils # 8.9 K/mm3 (1.8-7.7) H 09/02/16 12:05 PT 14.2 Sec. (12.2-14.9) 09/02/16 12:05 INR 1.11 (0.87-1.13) 09/02/16 12:05 APTT 25.2 Sec. (24.2-36.6) 09/02/16 12:05 POC ABG pH 7.341 (7.35-7.45) L 09/03/16 04:25 POC ABG pCO2 39.0 (35-45) 09/03/16 04:25 POC ABG pO2 125 (80-105) H 09/03/16 04:25 POC ABG HCO3 21.1 09/03/16 04:25 POC ABG Total CO2 22 09/03/16 04:25 POC ABG O2 Sat 99 09/03/16 04:25 POC ABG Base Excess -5 09/03/16 04:25 FiO2 40 % 09/03/16 04:25 Sodium 139 mmol/L (137-145) 09/02/16 12:05 Potassium 4.2 mmol/L (3.6-5.0) 09/02/16 12:05 Chloride 104.6 mmol/L (98-107) 09/02/16 12:05 Carbon Dioxide 20 mmol/L (22-30) L 09/02/16 12:05 Anion Gap 19 mmol/L 09/02/16 12:05 BUN 12 mg/dL (7-17) 09/02/16 12:05 Creatinine 0.9 mg/dL (0.7-1.2) 09/02/16 12:05 Estimated GFR > 60 ml/min 09/02/16 12:05 BUN/Creatinine Ratio 13.33 % 09/02/16 12:05 Glucose 122 mg/dL (65-100) H 09/02/16 12:05 Lactic Acid 1.6 mmol/L (0.7-2.0) 09/02/16 12:05 Calcium 8.1 mg/dL (8.4-10.2) L 09/02/16 12:05 Total Bilirubin 0.4 mg/dL (0.1-1.2) 09/02/16 12:05 Direct Bilirubin < 0.2 mg/dL (0-0.2) 09/02/16 12:05 AST 15 units/L (5-40) 09/02/16 12:05 ALT 13 units/L (7-56) 09/02/16 12:05 Alkaline Phosphatase 51 units/L (35-129) 09/02/16 12:05 Ammonia 37.0 umol/L (25-60) 09/02/16 12:05 Total Creatine Kinase 67 units/L (30-135) 09/04/16 08:53 CK-MB (CK-2) < 1.0 ng/mL (0.0-4.0) 09/04/16 08:53 CK-MB (CK-2) Rel Index 1.4 (0-4) 09/04/16 08:53 Troponin T < 0.010 ng/mL (0.00-0.029) 09/04/16 08:53 NT-Pro-B Natriuret Pep 42.87 pg/mL (0-450) 09/02/16 12:05 Total Protein 6.8 g/dL (6.3-8.2) 09/02/16 12:05 Albumin 3.8 g/dL (3.9-5) L 09/02/16 12:05 Albumin/Globulin Ratio 1.3 % 09/02/16 12:05 Urine Color Yellow (Yellow) 09/02/16 14:54 Urine Turbidity Clear (Clear) 09/02/16 14:54 Urine pH 6.0 (5.0-7.0) 09/02/16 14:54 Ur Specific [place] 1.019 (1.003-1.030) 09/02/16 14:54 Urine Protein 30 mg/dl mg/dL (Negative) 09/02/16 14:54 Urine Glucose (UA) 50 mg/dL (Negative) 09/02/16 14:54 Urine Ketones Tr mg/dL (Negative) 09/02/16 14:54 Urine Blood Neg (Negative) 09/02/16 14:54 Urine Nitrite Neg (Negative) 09/02/16 14:54 Urine Bilirubin Neg (Negative) 09/02/16 14:54 Urine Urobilinogen < 2.0 mg/dL (<2.0) 09/02/16 14:54 Ur Leukocyte Esterase Neg (Negative) 09/02/16 14:54 Urine WBC (Auto) < 1.0 /HPF (0.0-6.0) 09/02/16 14:54 Urine RBC (Auto) < 1.0 /HPF (0.0-6.0) 09/02/16 14:54 U Epithel Cells (Auto) 1.0 /HPF (0-13.0) 09/02/16 14:54 Urine Mucus Few /HPF 09/02/16 14:54 Salicylates < 0.3 mg/dL (2.8-20.0) L 09/02/16 12:05 Urine Opiates Screen Presumptive negative 09/02/16 14:54 Urine Methadone Screen Presumptive negative 09/02/16 14:54 Acetaminophen < 15.0 ug/mL (10.0-30.0) 09/02/16 12:05 Ur Barbiturates Screen Presumptive negative 09/02/16 14:54 Ur Phencyclidine Scrn Presumptive negative 09/02/16 14:54 Ur Amphetamines Screen Presumptive negative 09/02/16 14:54 U Benzodiazepines Scrn Presumptive negative 09/02/16 14:54 Urine Cocaine Screen Presumptive negative 09/02/16 14:54 U Marijuana (THC) Screen Presumptive negative 09/02/16 14:54 Drugs of Abuse Note Disclamer 09/02/16 14:54 Plasma/Serum Alcohol < 0.01 gm% (0-0.07) 09/02/16 12:05
--- NOTE | 2016-09-05 15:52 | Progress Note ---
Assessment and Plan Imp: 1. Drug overdose 2. Acute respiratory failure, hypoxia and hypercapnea presumed 2/2 #1 3. Obesity, nonmorbid 4. Acute encephalopathy 5. Wheezing Rec: 1. Patient wheezing on exam; no hx of asthma/COPD; will stop IVFs, order incentive spirometry, and need to try to get her OOB/ambulating 2. Consider d/c llamas 3. Psych evaluation pending 4. Will f/u on 09/06/16 if still here Plan of care reviewed w/ patient/son, they understand/agree Subjective Date of service: 09/05/16 Principal diagnosis: Acute respiratory failure Interval history: No events. Awake, alert. Has required 4 point restraints per RN for agitation, but calm now with son at bedside. On RA. Denies SOB, wheezing, cough, sputum, hx of pulmonary problems. Active Medications Acetaminophen (Tylenol) 650 mg PO Q4H PRN PRN Reason: Pain, Mild (1-3) Last Admin: 09/04/16 11:15 Dose: 650 mg Acetaminophen/Codeine Phosphate (Tylenol #3) 1 tab PO Q6H PRN PRN Reason: Pain Last Admin: 09/04/16 21:24 Dose: 1 tab Al Hydrox/Mg Hydrox/Simethicone (Alum-Mag Hydrox-Simeth [id number]/5ml) 30 ml PO Q4H PRN PRN Reason: Indigestion Albuterol/Ipratropium (Duoneb 0.5 Mg-3 Mg/3 Ml Soln) 1 ampul IH Q6HRT PRN PRN Reason: Wheezing Bisacodyl (Dulcolax) 10 mg WI QDAY PRN PRN Reason: constipation unrelieved by MOM Enoxaparin Sodium (Lovenox) 40 mg SUB-Q QDAY@1000 [facility] Last Admin: 09/05/16 09:55 Dose: Not Given Fluticasone Propionate (Flonase) 50 mcg NS QDAY [facility] Last Admin: 09/04/16 09:35 Dose: 50 mcg Guaifenesin (Robitussin) 100 mg PO Q6HR [facility] Last Admin: 09/05/16 13:32 Dose: 100 mg Hydrophilic Ointment (Vaseline Lip Therapy) 1 applic TP Q2HR PRN PRN Reason: Dry Lips Lisinopril (Zestril) 10 mg PO DAILY [facility] Last Admin: 09/05/16 09:54 Dose: 10 mg Magnesium Hydroxide (Milk Of Magnesia) 30 ml PO Q4H PRN PRN Reason: Constipation Multi-Ingred Cream/Lotion/Oil/Oint (Artificial Tears Ophth Oint) 1 applic OU Q4HR PRN PRN Reason: Dry Eye(s) Sertraline HCl (Zoloft) 50 mg PO QDAY [facility] Last Admin: 09/05/16 09:53 Dose: 50 mg Simple Syrup (Simple Syrup) 15 ml FEEDTUBE PRN PRN PRN Reason: Hypoglycemia Simple Syrup (Simple Syrup) 30 ml FEEDTUBE PRN PRN PRN Reason: Hypoglycemia Simvastatin (Zocor) 20 mg PO QHS [facility] Last Admin: 09/04/16 21:24 Dose: 20 mg Sodium Bicarbonate (Sodium Bicarbonate) 325 mg FEEDTUBE PRN PRN PRN Reason: For Clogged Feeding Tube Sodium Chloride (Nacl 0.9% 500 Ml) 1 ml IV DIRECT [facility] Objective Vital Signs - 12hr 09/05/16 09/05/16 09/05/16 04:00 08:00 09:54 Temperature 98.6 F 98.6 F Pulse Rate [ 95 H From Monitor] Pulse Rate [ 88 Left Radial] Respiratory 20 18 Rate Blood Pressure 139/82 139/82 Blood Pressure 118/55 [Left Arm] Blood Pressure [Right Arm] O2 Sat by Pulse 95 Oximetry 09/05/16 09/05/16 10:06 12:30 Temperature 98.3 F Pulse Rate [ 95 H From Monitor] Pulse Rate [ Left Radial] Respiratory 18 Rate Blood Pressure Blood Pressure [Left Arm] Blood Pressure 159/80 [Right Arm] O2 Sat by Pulse 94 95 Oximetry Constitutional: no acute distress, alert Eyes: non-icteric ENT: oropharynx moist, other (large neck) Neck: supple, other (large neck) Effort: normal Ascultation: Bilateral: wheezes Cardiovascular: regular rate and rhythm (no mrg) Gastrointestinal: normoactive bowel sounds, soft, non-tender, non-distended Integumentary: normal Extremities: no cyanosis, no edema, pink and warm Neurologic: normal mental status, non-focal exam, pupils equal and round, CN II- XII normal Psychiatric: mood appropriate, affect normal CBC and BMP: 09/02/16 12:05 09/02/16 12:05 ABG, PT/INR, D-dimer: ABG POC ABG pH 7.341 (7.35-7.45) L 09/03/16 04:25 POC ABG pCO2 39.0 (35-45) 09/03/16 04:25 POC ABG pO2 125 (80-105) H 09/03/16 04:25 POC ABG HCO3 21.1 09/03/16 04:25 POC ABG Total CO2 22 09/03/16 04:25 POC ABG O2 Sat 99 09/03/16 04:25 PT/INR, D-dimer PT 14.2 Sec. (12.2-14.9) 09/02/16 12:05 INR 1.11 (0.87-1.13) 09/02/16 12:05 Abnormal lab findings: Abnormal Labs 09/03/16 04:25 POC ABG pH 7.341 L POC ABG pO2 125 H Chest x-ray: report reviewed, image reviewed
[2016-09-05] MEDS: ATIVAN IV PRN (21:03)
[2016-09-05] MEDS: TYLENOL #3 PO PRN (21:04)
[2016-09-05] MEDS: ZOCOR PO SCH (21:04)
[2016-09-06] MEDS: ATIVAN IV PRN (01:45)
[2016-09-06] MEDS: ROBITUSSIN PO SCH ×2 (05:09→12:07)
[2016-09-06 05:29] LABS: Hematocrit 31.5 % (30.3-42.9); Hemoglobin 10.3 gm/dl (10.1-14.3); Mean Corpuscular HGB Conc 33 % (30-34); Mean Corpuscular Hemoglobin 27 pg (28-32); Mean Corpuscular Volume 82 fl (79-97); Platelet Count 286 K/mm3 (140-440); Red Blood Count 3.83 M/mm3 (3.65-5.03); Red Cell Distribution Width 16.5 % (13.2-15.2); White Blood Count 9.7 K/mm3 (4.5-11.0)
[2016-09-06 05:46] LABS: Anion Gap 17 mmol/L; Blood Urea Nitrogen 7 mg/dL (7-17); Calcium 8.1 mg/dL (8.4-10.2); Carbon Dioxide 24 mmol/L (22-30); Chloride 102.2 mmol/L (98-107); Glucose 93 mg/dL (65-100); Sodium 140 mmol/L (137-145)
[2016-09-06 05:57] LABS: Potassium 2.8 mmol/L (3.6-5.0)
[2016-09-06] MEDS ORDERED: K-DUR PO ONE (06:01)
[2016-09-06] MEDS: KCL 10MEQ/100ML 10 MEQ/100 ML BAG IV SCH ×2 (06:29→08:02)
[2016-09-06] MEDS: FLONASE NS SCH ×2 (08:00→11:14)
[2016-09-06 08:46] VITALS: BP 152/82
[2016-09-06] MEDS: ZESTRIL PO SCH (09:34)
[2016-09-06] MEDS: ZOLOFT PO SCH (09:34)
[2016-09-06] MEDS: LOVENOX SUB-Q SCH (09:35)
--- NOTE | 2016-09-06 13:56 | Progress Note ---
Assessment and Plan Imp: 1. Drug overdose 2. Acute respiratory failure, hypoxia and hypercapnea presumed 2/2 #1 3. Obesity, nonmorbid 4. Acute encephalopathy, resolved 5. Wheezing, resolved Rec: 1. Wheezing better; agree w/ Flonase + consider OTC Zyrtec; if any SOB/wheezing as outpatient should come see us in the office, she/family understand 2. Stable pulmonary-ribeiro for d/c Plan of care reviewed w/ patient/son, they understand/agree Subjective Date of service: 09/06/16 Principal diagnosis: Acute respiratory failure Interval history: No events. Awake, alert. Denies SOB, wheezing, on RA. Has had more cough/sputum after moving around which has helped her feel better. Objective Vital Signs - 12hr 09/06/16 08:00 Temperature 98.5 F Pulse Rate [ 93 H From Monitor] Respiratory 20 Rate Blood Pressure 152/82 [Right Arm] O2 Sat by Pulse 98 Oximetry Constitutional: no acute distress, alert Eyes: non-icteric ENT: oropharynx moist, other (large neck) Neck: supple, other (large neck) Effort: normal Ascultation: Bilateral: clear (wheezing better) Cardiovascular: regular rate and rhythm (no mrg) Gastrointestinal: normoactive bowel sounds, soft, non-tender, non-distended Integumentary: normal Extremities: no cyanosis, no edema, pink and warm Neurologic: normal mental status, non-focal exam, pupils equal and round, CN II- XII normal Psychiatric: mood appropriate, affect normal CBC and BMP: 09/06/16 04:58 09/06/16 11:21 ABG, PT/INR, D-dimer: ABG POC ABG pH 7.341 (7.35-7.45) L 09/03/16 04:25 POC ABG pCO2 39.0 (35-45) 09/03/16 04:25 POC ABG pO2 125 (80-105) H 09/03/16 04:25 POC ABG HCO3 21.1 09/03/16 04:25 POC ABG Total CO2 22 09/03/16 04:25 POC ABG O2 Sat 99 09/03/16 04:25 PT/INR, D-dimer PT 14.2 Sec. (12.2-14.9) 09/02/16 12:05 INR 1.11 (0.87-1.13) 09/02/16 12:05 Abnormal lab findings: Abnormal Labs 09/03/16 09/06/16 09/06/16 04:25 04:58 04:58 MCH 27 L RDW 16.5 H POC ABG pH 7.341 L POC ABG pO2 125 H Potassium 2.8 L* D Creatinine 0.5 L Calcium 8.1 L Chest x-ray: report reviewed, image reviewed
[2017-04-04] MEDS ORDERED: ZEMURON IV ONE (12:37)
[2017-04-04] MEDS ORDERED: AMIDATE IV ONE (12:37)
== END 2016-09-06 12:57 | disposition home or self-care (01) | DRG 917 ==
LOC: ED 11:29 → CC1 14:03 → 3A 09-04 18:20
PROVIDERS: ADMIT Internal Medicine; ATTEND Family Medicine
PROC: 5A1945Z Respiratory Ventilation, 24-96 Consecutive Hours (ICD-10-PCS; principal; 2016-09-02)
PROC: 0BH17EZ Insertion of Endotracheal Airway into Trachea, Via Natural or Artificial Opening (ICD-10-PCS; 2016-09-02)
PROC: 4A033R1 Measurement of Arterial Saturation, Peripheral, Percutaneous Approach (ICD-10-PCS; 2016-09-02)
DX: T50.901A Poisoning by unspecified drugs, medicaments and biological substances, accidental (unintentional), initial encounter (principal); J96.01 Acute respiratory failure with hypoxia; G92 Toxic encephalopathy; J96.02 Acute respiratory failure with hypercapnia; F32.9 Major depressive disorder, single episode, unspecified; M79.7 Fibromyalgia; E66.9 Obesity, unspecified; E78.5 Hyperlipidemia, unspecified; Z88.8 Allergy status to other drugs, medicaments and biological substances; Z88.2 Allergy status to sulfonamides; Z68.36 Body mass index [BMI] 36.0-36.9, adult; Z82.49 Family history of ischemic heart disease and other diseases of the circulatory system; Z71.3 Dietary counseling and surveillance
CPT/HCPCS: 36415; 36600; 70450; 71010; 80048; 80074; 80307; 80320; 81001; 82140; 82550; 82553; 82803; 83880; 84132; 84484; 85025; 85027; 85610; 85730; 87040; 87205; 93005; 93010; 94002; 94003; 94760; 96361; 96365; 96372; G0480; J0360; J1650; J2060; J2310; J3010; J3480; J7030; J7040